=== PATIENT | female | born 1985 | race African-American/Black ===

== ENCOUNTER 2019-04-07 17:35 | Emergency (ER) | payer OTHER, SELFPAY ==
[2019-04-07 17:42] VITALS: BP 119/65; PULSE 67; RESP 16; TEMP 36.8; O2SAT 100
--- NOTE | 2019-04-07 17:46 | ED.GENADULT ---
HPI - General Adult General Chief complaint: Urogenital-Female Stated complaint: mild cramping/urine odor Time Seen by Provider: 04/07/19 18:02 Source: patient Mode of arrival: ambulatory Limitations: no limitations History of Present Illness HPI narrative: 34-year-old female patient presents to the [facility] with complaints of urinary symptoms for the past 8 days. Patient states she has had some odor to her urine, urgency and frequency and some lower abdominal pressure. Denies any fevers. Denies any low back pain. Patient states she is having a little bit of clear vaginal discharge but this is normally happens right before she starts her period. Patient states that her last menstrual cycle was March 12. Patient denies any or breast-feeding that she is aware of however she states that she is not on any control and she is sexually active. Patient does not have any concerns for STDs because she is in a monogamous relationship. Related Data Allergies Allergy/AdvReac Type Severity Reaction Status Date / Time No Known Allergies Allergy Verified 04/07/19 17:48 Review of Systems Review of Systems: Narrative: CONSTITUTIONAL: Denies fever, chills, or sweats. EYES: Denies visual changes, redness, or discharge. ENT: Denies rhinorrhea, congestion, sore throat, or otalgia. CARDIOVASCULAR: Denies chest pain, palpitations, or edema. RESPIRATORY: Denies cough or dyspnea. GASTROINTESTINAL: Positive lower abdominal pressure, denies nausea, vomiting, or diarrhea. GENITOURINARY: Denies dysuria or hematuria. Positive urgency and frequency and urine odor SKIN: Denies rash or itching. MUSCULOSKELETAL: Denies back pain, joint pain, or myalgia. NEUROLOGIC: Denies headache, numbness, or weakness. PSYCHIATRIC: Denies anxiety or depression. PMFSH Comments At the time of my signature I agree with nursing past medical history, surgical, social, and family history. There is no relevant family history pertinent to the presenting complaint. Exam Narrative: Exam Narrative: GENERAL: Well-appearing, well-nourished, and in no acute distress. HEAD: Normocephalic, atraumatic. EYES: PERRLA and EOMI. ENT: Nares clear, no rhinorrhea or epistaxis. Mucous membranes moist. NECK: Supple. No lymphadenopathy CHEST: Clear to auscultation. No respiratory distress. HEART: Regular rate and rhythm. No murmur heard. Normal peripheral pulses. ABDOMEN: Soft, nontender, nondistended, normal active bowel sounds. No CVA tenderness on percussion. EXTREMITIES: Normal range of motion. No edema. SKIN: Warm, dry, no rash. NEURO: No focal deficits. Alert and oriented x3. Course Vital Signs Vital signs: Vital Signs Temperature 36.8 C 04/07/19 17:42 Pulse Rate 67 04/07/19 17:42 Respiratory Rate 16 04/07/19 17:42 Blood Pressure 119/65 04/07/19 17:42 Pulse Oximetry 100 04/07/19 17:42 Temperature 36.8 C 04/07/19 17:42 Pulse Rate 67 04/07/19 17:42 Respiratory Rate 16 04/07/19 17:42 Blood Pressure 119/65 04/07/19 17:42 Pulse Oximetry 100 04/07/19 17:42 Vital signs reviewed. Medical Decision Making Differential Diagnosis Differential Diagnosis: Differential diagnosis: Uncomplicated lower UTI, uncomplicated UTI, pyelonephritis Discussed with patient that her urine dip is pretty unremarkable today and only shows maybe a trace of blood. Discussed with her that since she is symptomatic today on presentation with urgency, frequency, abdominal pressure we will go ahead and start her on antibiotics and send the urine off to the lab for culture. We will do a test before any antibiotics are ordered just to make sure that she is not . Patient verbalized understanding denies any other questions or concerns at this time. Vital Signs Vital Signs: Vital Signs Temperature 36.8 C 04/07/19 17:42 Pulse Rate 67 04/07/19 17:42 Respiratory Rate 16 04/07/19 17:42 Blood Pressure 119/65 04/07/19 17:42 Pulse Oximet
== END 2019-04-07 18:23 | disposition home or self-care (01) ==
PROVIDERS: Emergency Provider Nurse Practitioner Family
DX: R39.15 Urgency of urination (principal); R35.0 Frequency of micturition
CPT/HCPCS: 81003; 81025; 87086; 87088; 99204; G0463

== ENCOUNTER 2020-01-30 15:02 | Outpatient (CLI) | payer OTHER, SELFPAY ==
--- NOTE | ~2020-01-30 | US_ITS ---
EXAMINATION: US pelvic complete w TV DATE: 01/30/2020 16:00 INDICATION: Pelvic and perineal pain Comparison:No prior studies for comparison. TECHNIQUE: Multiple transabdominal and endovaginal sonographic images of the pelvis performed. FINDINGS: The uterus measures 6.9 x 4.6 x 5.9 cm. The endometrial complex measures 1 cm. The right ovary measures 3.2 x 2.3 x 2.4 cm and the left ovary measures 2.4 x 2.2 x 1.4 cm. There ar e small follicles in each ovary. There is no free fluid in the pelvis. There are no abnormal masses seen on either side. IMPRESSION: 1. Unremarkable pelvic ultrasound. Reviewed, dictated and finalized at location B. LOPMENT DIRECTOR
== END 2020-01-30 15:03 | disposition home or self-care (01) ==
LOC: ANHIMG 15:09
PROVIDERS: PCP Family Medicine; Visit Provider Student in an Organized Health Care Education/Training Program
DX: R10.2 Pelvic and perineal pain (principal)
CPT/HCPCS: 76830; 76856

== ENCOUNTER 2021-03-20 11:36 | Outpatient (CLI) | payer OTHER, SELFPAY ==
--- NOTE | ~2021-03-20 | MM_ITS ---
EXAMINATION: MM screening tato BI w kristian HISTORY: Screening TECHNIQUE: Craniocaudal and mediolateral oblique 3-D tomosynthesis images were obtained and synthetic 2-D images were generated. CAD analysis was submitted and interpreted. COMPARISON: No prior mammogram is available for comparison at this institution. BREAST PARENCHYMAL COMPOSITION: There are scattered areas of fibroglandular density. FINDINGS: There is no evidence of suspicious mass, calcification, or architectural distortion to sugg est malignancy in either breast. There has been no suspicious interval change. IMPRESSION: 1. No mammographic evidence of malignancy. 2. Recommend routine screening mammography in one year. BI-RADS Category 1: Negative Reviewed, dictated and finalized at location A. TEGY PLANNING CONSULTANT
== END 2021-03-20 11:37 ==
PROVIDERS: Visit Provider Family Medicine
DX: Z12.31 Encounter for screening mammogram for malignant neoplasm of breast (principal)
CPT/HCPCS: 77063; 77067

== ENCOUNTER 2022-06-08 14:05 | Emergency (ER) | payer OTHER, SELFPAY ==
[2022-06-08] VITALS (31 sets, daily range): BP systolic 104–182; BP diastolic 60–159; PULSE 60–85; RESP 12–27; TEMP 36.6; O2SAT 97–100
--- NOTE | ~2022-06-08 | CT_ITS ---
EXAMINATION: CT brain wo con DATE: 06/08/2022 20:06 INDICATION: syncope vs near syncope today . TECHNIQUE: Computed tomography (CT) of the head was performed without intravenous contrast. The mA wa s adjusted according to patient size. Iterative reconstruction technique was employed. The dose-lengt h product was 529.67 mGy-cm. COMPARISON: None. FINDINGS: No acute intracranial hemorrhage or extra-axial fluid collection. No hydrocephalus, mass, or herniation. No acute ischemic infarct. Unremarkable dural venous sinus attenuation. No acute osseous abnormality. The aerated spaces are clear. IMPRESSION: No acute intracranial process. Reviewed, dictated and finalized at location K.
--- NOTE | ~2022-06-08 | XR_ITS ---
EXAMINATION: XR chest 2V Exam Date/Time: 06/08/2022 15:30 CDT HISTORY: chest tightness, CELTRALIZED CP X TODAY Comparison: None available. RESULT: Lines, tubes, and devices: None. Lungs and pleura: Clear. Cardiomediastinal silhouette: Normal. Other: No acute osseous or upper abdominal finding. IMPRESSION: No acute cardiopulmonary process. Reviewed, dictated and finalized at location K.
--- NOTE | 2022-06-08 14:08 | ECG_ITS ---
Measurements Intervals [place] Rate: 96 P: 75 MO: 147 QRS: 81 QRSD: 89 T: 57 QT: 380 QTc: 481 Interpretive Statements SINUS RHYTHM BASELINE ARTIFACT POSSIBLE LEFT ATRIAL ENLARGEMENT [-0.1mV P WAVE IN V1/V2] BORDERLINE ECG NO PREVIOUS ECG AVAILABLE FOR COMPARISON Electronically Signed On 06-09-2022 16:49:36 CDT by Toñito Strong M.D.
[2022-06-08 14:28] LABS: Basophils Absolute Auto 0.1 K/mm3 (0.0-0.1); Basophils Percent Auto 0.4 % (0.2-1.2); Eosinophils Percent Auto 0.2 % (0-4.4); Hematocrit 40.1 % (37.0-47.0); Hemoglobin 12.8 g/dL (12.0-15.0); Immature Granulocyte Absolute 0.05 K/mm3 (0.00-0.031); Immature Granulocyte Percent A 0.4 % (0-0.5); Lymphocytes Absolute Auto 2.53 K/mm3 (0.9-3.2); Lymphocytes Percent Auto 21.7 % (18.3-44.2); Mean Corpuscular HGB Conc 31.9 g/dl (32-36); Mean Corpuscular Hemoglobin 27.9 pg (26-34); Mean Corpuscular Volume 87.6 fl (80-100); Monocytes Absolute Auto 0.6 K/mm3 (0.1-0.6); Monocytes Percent Auto 5.1 % (2.6-8.5); Neutrophils Absolute Auto 8.4 K/mm3 (1.3-6.7); Neutrophils Percent Auto 72.2 % (45.5-73.1); Platelet Count Result 264 k/mm3 (150-375); Red Blood Count 4.58 M/mm3 (4.2-5.4); Red Cell Distribution Width 13.2 % (11.5-14.5); White Blood Count 11.7 K/mm3 (4.5-10.0)
[2022-06-08 14:38] LABS: Alanine Aminotransferase 23 U/L (6-35); Alkaline Phosphatase 92 U/L (38-126); Anion Gap 11 mmol/L (8-16); Aspartate Amino Transferase 30 U/L (14-36); Bilirubin,Total 0.6 mg/dL (0.2-1.3); Blood Urea Nitrogen 6 mg/dL (7-17); Calcium 9.7 mg/dL (8.4-10.2); Carbon Dioxide 22 mmol/L (22-30); Chloride 107 mmol/L (98-107); Estimated CRCL calculation 80 ml/min; Estimated Glomerular Filt Rate > 60; Glucose 81 mg/dL (65-110); Potassium 3.4 mmol/L (3.4-5.0); Sodium 140 mmol/L (137-145)
[2022-06-08 16:03] LABS: Troponin I < 0.012 ng/mL (0.000-0.034)
[2022-06-08 16:05] LABS: D Dimer 0.45 ug/mL (<0.48)
--- NOTE | 2022-06-08 16:30 | ED.SOB ---
HPI - SOB/Dyspnea General Chief Complaint: Shortness of Breath/Dyspnea Stated Complaint: SOB Time Seen by Provider: 06/08/22 15:03 Source: patient Mode of arrival: ambulatory Limitations: no limitations History of Present Illness HPI Narrative: Patient is a 37 y/o female who presents to the ED with multiple complaints. Patient reports she was dancing at [employer] this morning when she began feeling slightly weak and lightheaded. She left the room and sat down and began feeling continuously weak, lightheaded, nauseous, diaphoretic, tunnel vision. Patient then had a questionable syncopal episode. She states people at [employer] told her she may have passed out, but patient thought she was sleeping. reported that she seemed to fall asleep or passed out again en route to the ED. Patient states she feels fine currently. She did not eat breakfast before exerting herself this morning. She does complain of some midsternal chest pain and shortness of breath that began with the near syncopal episodes. She otherwise states she feels back to normal currently in the ED. Denies any recent illness, cough, cold symptoms, fevers, vomiting, abdominal pain, lower extremity pain or swelling. Denies any past medical issues. No hx of cardiac issues. Related Data Home Medications Medication Instructions Recorded Confirmed ferrous gluconate 240 mg (27 mg 240 mg PO DAILY PRN 01/10/20 iron) tablet (Ferate) multivitamin (Multiple Vitamins 1 tablet PO DAILY 01/10/20 tablet) ergocalciferol (vitamin D2) 1,250 1,250 mcg PO WEEKLY 09/11/20 mcg (50,000 unit) capsule marisela root PO 09/11/20 Allergies Allergy/AdvReac Type Severity Reaction Status Date / Time No Known Allergies Allergy Verified 06/08/22 15:11 Review of Systems Review of Systems: CONSTITUTIONAL: Denies fever, chills, or sweats. EYES: See HPI. ENT: Denies rhinorrhea, congestion, sore throat. CARDIOVASCULAR: See HPI. RESPIRATORY: See HPI. GASTROINTESTINAL: See HPI. GENITOURINARY: Denies dysuria or hematuria. SKIN: Denies rash or itching. MUSCULOSKELETAL: Denies BLE pain. NEUROLOGIC: See HPI. All systems reviewed & are unremarkable except as noted in HPI and below PMFSH Past Medical History Medical History Acid reflux Anemia History of vaginal delivery Surgical History Surgical History History of delivery Family History Family History Mother Blood clot in vein Breast cancer Grandparent Diabetes mellitus Hypertension Cerebrovascular accident Hyperlipidemia Social History Social History Smoking status: Never smoker Alcohol intake: current Substance use: current Substance use type: marijuana Exam Narrative: GENERAL: Well appearing, well-nourished, non-toxic, in no acute distress. HEAD: Normocephalic, atraumatic. EYES: PERRL/EOMI, conjunctivae clear bilaterally. No nystagmus. NECK: Supple. No adenopathy, no masses. RESPIRATORY: Airway patent, respirations nonlabored. Clear to auscultation bilaterally, no rales, rhonchi, wheezing. CARDIOVASCULAR: Regular rate and rhythm without murmurs, rubs, or gallops. Radial pulses 2+ and equal bilaterally. ABDOMINAL: Soft, nontender, nondistended, no hepatosplenomegaly. Normoactive BS. MUSCULOSKELETAL: Moves all extremities. Strength/ROM intact without gross deformities or TTP. No edema. No calf tenderness. SKIN: Warm, dry, normal color. No rashes. NEURO: A&O X3. Speech clear. Follows commands. CN II-XII intact. Sensation grossly intact. Steady gait. No ataxic movements. Strength 5/5 in upper and lower extremities bilaterally. [id number] and [id number] testing intact bilaterally. No pronator drift. Equal program host strength bilaterally. PSYCHIATRIC: Very anxious
[2022-06-08] MEDS: SODIUM CHLORIDE 0.9% IV 1,000 ML 999 ML IV CONT ×2 (17:08)
[2022-06-08 17:15] LABS: Appearance Urine Clear (Clear); Bilirubin Urine Negative (Negative); Blood Urine Negative (Negative); Color Urine Yellow (Yellow); Glucose Urine UA Negative (Negative); Ketones Urine 1+ mg/dL (Negative); Leukocyte Esterase Ur Negative LEU/UL (Negative); Nitrate Urine Negative (Negative); Protein Urine Negative (Negative); Specific Grav Ur 1.011 (1.001-1.035); Urobilinogen Urine 0.2 mg/dL (<2.0)
[2022-06-08 17:19] LABS: Add Urine Microscopic? NO
[2022-06-08 17:30] LABS: Amphetamine Screen Urine Negative (Negative); Barbiturate Screen Urine Negative (Negative); Benzodiazepines Screen Urine Negative (Negative); Cannabinoid Screen Urine Positive (Negative); Cocaine Screen Urine Negative (Negative); Methadone Screen Urine Negative (Negative); Opiate Screen Urine Negative (Negative); Phencyclidine Screen Urine Negative (Negative)
[2022-06-08 17:42] LABS: Troponin I < 0.012 ng/mL (0.000-0.034)
[2022-06-08 17:54] LABS: Influenza A QL RT-PCR Negative (Negative); Influenza B QL RT-PCR Negative (Negative); SARS-CoV-2 RNA PCR Negative
== END 2022-06-08 20:30 | disposition home or self-care (01) ==
PROVIDERS: Emergency Medicine; Emergency Provider Physician Assistant; PCP Family Medicine
DX: R55 Syncope and collapse (principal); R07.89 Other chest pain; Z20.822 Contact with and (suspected) exposure to COVID-19; D64.9 Anemia, unspecified
CPT/HCPCS: 36415; 70450; 71046; 80053; 80307; 81003; 81025; 84484; 85025; 85380; 87636; 93005; 96360; 99284; J7030

== ENCOUNTER 2024-01-20 09:34 | Outpatient (CLI) | payer OTHER, SELFPAY ==
--- NOTE | ~2024-01-20 | XR_ITS ---
EXAMINATION: XR UGIAC sm bowel esophagram DATE: 01/20/2024 11:29 INDICATION: Dysphagia. Heartburn. Difficulty swallowing. TECHNIQUE: Corporate Consultant radiograph of the abdomen and pelvis was obtained. The patient drank thick barium, g as-producing crystals, and thin barium. Fluoroscopic images of the hypopharynx, esophagus, stomach, p roximal small bowel were obtained. Additional overhead radiographs were obtained during the transit t hrough the small bowel. Spot fluoroscopic images of the small bowel were obtained upon contrast reac nuris the cecum. Fluoroscopy exposure time was 4.1 minutes. A total of 6 overhead radiographs and 1721 fluoroscopic images were recorded. Total DAP was 30.272 Gycm^2. COMPARISON: None. FINDINGS: The pharynx is symmetric and without evidence of mass lesion or mucosal irregularity. The esophagus i s normal without mass or stricture. Esophageal motility is normal. There is no hiatal hernia. There w as a single spontaneous episode of gastroesophageal reflux of a small amount contrast to the level of the midesophagus. No additional reflux observed with provocative maneuvers. The stomach and proximal small bowel are normal. Transit time from the stomach to proximal colon was approximately 3 minutes. There is normal caliber and mucosal fold pattern throughout the small bowel. Terminal ileum is normal. No tethering or abno rmal mass effect observed upon the small bowel with real-time fluoroscopy. IMPRESSION: 1. Single episode of gastroesophageal reflux of a small amount of contrast into the distal esophagus. Otherwise normal esophagram, upper GI study and small bowel follow-through. Reviewed, dictated and finalized at location B. RT PRESS OPERATOR IMPRESSION: 1. Single episode of gastroesophageal reflux of a small amount of contrast into the distal esophagus. Otherwise normal esophagram, upper GI study and small barb wel follow-through.
== END 2024-01-20 09:35 | disposition home or self-care (01) ==
LOC: ANHIMG 09:35
PROVIDERS: PCP Family Medicine; Visit Provider Nurse Practitioner Family
DX: K21.9 Gastro-esophageal reflux disease without esophagitis (principal)
CPT/HCPCS: 74246; 74248

== ENCOUNTER 2024-02-11 00:25 | Day surgery (SDC) | payer OTHER, SELFPAY ==
[2024-01-27 13:26] VITALS: BMI 25.5
--- NOTE | 2024-02-11 11:13 | P.PNAN_ITS ---
Anes - Initial Pre Proc Eval Procedure: Operation Date: 02/11/24 14:30 Proposed Procedures p Esophagogastroduodenoscopy & Colonoscopy - Delfino Valentine MD Date/Time: 02/11/24 11:13 Surgeon: Delfino Valentine MD Pre Op Diagnosis: GERD/ Dysphagia/ Diarrhea Patient Data Age: 38 Gender: F Height: 1.6 m Weight: 65.5 kg Allergies Allergy/AdvReac Type Severity Reaction Status Date / Time No Known Allergies Allergy Verified 01/27/24 13:09 Home Medications ?Medication ?Instructions ?Recorded ?Confirmed ?Type ferrous gluconate 240 mg (27 mg 240 mg PO DAILY 01/10/20 01/27/24 History iron) tablet (Ferate) medroxyprogesterone 10 mg tablet 10 mg PO TID #90 tabs 01/10/20 01/10/20 Rx multivitamin (Multiple Vitamins 1 tablet PO DAILY 01/10/20 01/27/24 History tablet) ergocalciferol (vitamin D2) 1,250 1,250 mcg PO WEEKLY 09/11/20 01/27/24 History mcg (50,000 unit) capsule marisela root PO 09/11/20 History etonogestrel 0.12 mg-ethinyl See Rx Instructions .Route 05/06/21 01/27/24 Rx estradiol 0.015 mg/24 hr vaginal .COMPLEX ##4 ring cyclobenzaprine 5 mg tablet 5 mg PO TID PRN muscle spasms 01/05/24 01/27/24 History famotidine 40 mg tablet 40 mg PO DAILY 01/05/24 01/27/24 History hydroxyzine HCl 25 mg tablet 25 mg PO DAILY 01/05/24 01/27/24 History pantoprazole 40 mg tablet,delayed 40 mg PO TID 01/27/24 01/27/24 History release Patient hx anesthesia problems: none Family hx anesthesia problems: none Results Review: All pre-operative results and documents have been reviewed as part of the pre- operative evaluation. [facility] Past Medical History Medical History Acid reflux Anemia History of vaginal delivery Surgical History Surgical History History of delivery Family History Family History Mother Blood clot in vein Breast cancer Grandparent Diabetes mellitus Hypertension Cerebrovascular accident Hyperlipidemia Social History Social History Smoking status: Never smoker Alcohol intake: current Substance use: current Substance use type: marijuana Anes - Eval Final PreProcedure Day of Procedure 02/11/24 11:13 Patient weight: normal Heart: regular rate and rhythm Lungs: clear to auscultation Airway: Mallampati scale class II Neurological: alert and oriented Last oral intake: >/= 8 hours ASA classification: II Emergent: no Anesthetic plan: proceed Anesthesia type and monitoring: general GIVS and standard monitoring Results Review: All pre-operative results and documents have been reviewed as part of the pre- operative evaluation. Informed Consent: The patient's anesthetic plan and its attendant risks and benefits were discussed with the patient/family/POA. Questions were solicited and answers provided to the satisfaction of the patient/family/POA.
[2024-02-11 11:24] VITALS: BP 126/73; PULSE 68; RESP 18; TEMP 36.8; O2SAT 100
[2024-02-11] MEDS: LACTATED RINGERS 1,000 ML 150 ML IV CONT (11:26)
--- NOTE | 2024-02-11 11:27 | PM.HPGS ---
History of Present Illness History of Present Illness Consent: Risks, benefits, and alternatives have been discussed and questions answered. Patient agrees to proceed with procedure. Chief complaint: GERD/ Dysphagia/ Diarrhea Narrative: Christian Cadet is a 38 year old female here for first egd and colonoscopy, h/o abdominal pain and gerd which has improved with pantoprazole and famotidine, also loose stools. Review of Systems Review of Systems: All systems reviewed & are unremarkable except as noted in HPI and below PMFSH Past Medical History Medical History Acid reflux Anemia History of vaginal delivery Surgical History Surgical History History of delivery Family History Family History Mother Blood clot in vein Breast cancer Grandparent Diabetes mellitus Hypertension Cerebrovascular accident Hyperlipidemia Social History Social History Smoking status: Never smoker Alcohol intake: current Substance use: current Substance use type: marijuana Meds Home Medications and Allergies Home Medications ?Medication ?Instructions ?Recorded ?Confirmed ?Type ferrous gluconate 240 mg (27 mg 240 mg PO DAILY 01/10/20 02/11/24 History iron) tablet (Ferate) medroxyprogesterone 10 mg tablet 10 mg PO TID #90 tabs 01/10/20 01/10/20 Rx multivitamin (Multiple Vitamins 1 tablet PO DAILY 01/10/20 02/11/24 History tablet) ergocalciferol (vitamin D2) 1,250 1,250 mcg PO WEEKLY 09/11/20 02/11/24 History mcg (50,000 unit) capsule marisela root PO 09/11/20 History etonogestrel 0.12 mg-ethinyl See Rx Instructions .Route 05/06/21 01/27/24 Rx estradiol 0.015 mg/24 hr vaginal .COMPLEX ##4 ring cyclobenzaprine 5 mg tablet 5 mg PO TID PRN muscle spasms 01/05/24 02/11/24 History famotidine 40 mg tablet 40 mg PO DAILY 01/05/24 02/11/24 History hydroxyzine HCl 25 mg tablet 25 mg PO DAILY 01/05/24 02/11/24 History pantoprazole 40 mg tablet,delayed 40 mg PO TID 01/27/24 02/11/24 History release Allergies Allergy/AdvReac Type Severity Reaction Status Date / Time No Known Allergies Allergy Verified 01/27/24 13:09 Vital Signs Vital Signs - 24 hr 02/11/24 11:24 Temperature 98.2 F Pulse Rate 68 Respiratory Rate 18 Blood Pressure 126/73 Pulse Oximetry 100 Oxygen Delivery Room Air Exam Const: General: comfortable and no acute distress HENMT: Face/Nose/Sinus: Normal nares present Eyes: General: appearance normal, both eyes and all related structures Neck: Neck: no JVD Resp: Auscultation: clear to auscultation bilaterally Cardio: Rate: regular rate Rhythm: regular rhythm GI: Inspection: non-distended GI Palp: Yes Soft to palpation Skin: General skin exam: normal color Neuro: General: gait normal Speech: normal speech Extrem: General: normal to inspection Psych: Mental Status: mental status grossly normal Assessment and Plan Assessment and plan (1) GERD (gastroesophageal reflux disease): Qualifiers: Esophagitis presence: esophagitis presence not specified Qualified Code(s): K21.9 - Gastro-esophageal reflux disease without esophagitis Code(s): K21.9 - Gastro-esophageal reflux disease without esophagitis Status: Acute Assessment and Plan: egd with bx (2) Epigastric pain: Code(s): R10.13 - Epigastric pain Status: Acute (3) Diarrhea: Qualifiers: Diarrhea type: unspecified type Qualified Code(s): R19.7 - Diarrhea, unspecified Code(s): R19.7 - Diarrhea, unspecified Status: Acute Assessment and Plan: colonoscopy
[2024-02-11 11:28] LABS: BEDSIDEPREGUCG Negative (Negative)
--- NOTE | 2024-02-11 11:44 | SUR.OPER ---
EGD: [id number], Colonoscopy: [id number]
[2024-02-11 11:55] VITALS: BP 116/65; PULSE 68; RESP 20; O2SAT 100
[2024-02-11 12:05] VITALS: BP 125/71; PULSE 55; RESP 20; O2SAT 100
[2024-02-11 12:15] VITALS: BP 124/70; PULSE 56; RESP 22; O2SAT 100
== END 2024-02-11 12:36 | disposition home or self-care (01) ==
PROVIDERS: Anesthesiology; PCP Family Medicine; Referring Provider Nurse Practitioner Family; Visit Provider Internal Medicine Gastroenterology
PROC: 0DJ08ZZ Inspection of Upper Intestinal Tract, Via Natural or Artificial Opening Endoscopic (ICD-10-PCS; CPT 43235; principal; 2024-02-11 14:30)
DX: K29.50 Unspecified chronic gastritis without bleeding (principal); B96.81 Helicobacter pylori [H. pylori] as the cause of diseases classified elsewhere; K26.9 Duodenal ulcer, unspecified as acute or chronic, without hemorrhage or perforation; K44.9 Diaphragmatic hernia without obstruction or gangrene; K64.8 Other hemorrhoids; K21.9 Gastro-esophageal reflux disease without esophagitis; D64.9 Anemia, unspecified; Z98.890 Other specified postprocedural states; Z80.3 Family history of malignant neoplasm of breast; Z82.49 Family history of ischemic heart disease and other diseases of the circulatory system
CPT/HCPCS: 43239; 45380; 88305; J2003; J2704; J7120